=== PATIENT | female | born 1955 | race Caucasian/White ===

== ENCOUNTER 2023-11-10 06:37 | Inpatient (IN) | payer MEDICARE, MEDICAID ==
[2023-11-03 16:53] LABS: BILIRUBIN,URINE NEGATIVE (Neg); CLARITY,URINE CLOUDY (Clear); COLOR,URINE YELLOW (Yellow); GLUCOSE, URINE >=1000 mg/dl (Neg); KETONES,URINE NEGATIVE (Neg); LEUKOCYTE ESTERASE ,URINE NEGATIVE (Neg); NITRITES, URINE NEGATIVE (Neg); OCCULT BLOOD,URINE NEGATIVE (Neg); PROTEIN,URINE NEGATIVE (Neg); UROBILINOGEN,URINE 0.2 E.U/dL (0.2-1.0)
[2023-11-03 16:57] LABS: UA COLLECTION TYPE VOIDED
[2023-11-03 17:07] LABS: BASOPHILS # (AUTO) 0.1 X10'3 (0-0.2); EOSINOPHILS # (AUTO) 0.2 X10'3 (0-0.9); EOSINOPHILS % (AUTO) 3.3 % (0-6); LYMPHOCYTES # (AUTO) 2.1 X10'3 (1.1-4.8); MEAN CORPUSCULAR HEMOGLOBIN 30.4 PG (27.0-31.0); MEAN CORPUSCULAR HGB CONC 33.1 g/dL (33.0-36.5); MEAN CORPUSCULAR VOLUME 91.7 FL (78-98); MONOCYTES # (AUTO) 0.6 X10'3 (0-0.9); NEUTROPHILS # (AUTO) 4.5 X10'3 (1.8-7.7); NEUTROPHILS % (AUTO) 59.7 % (42-75); PRE OP HEMATOCRIT 48.2 % (35.0-45.0); PRE OP HEMOGLOBIN 15.9 g/dL (12.0-16.0); PRE OP PLATELET COUNT 219 X10'3 (140-440); PRE OP WHITE BLOOD COUNT 7.5 10'3 (4.8-10.8); RED BLOOD COUNT 5.25 X10'6 (4.20-5.60); RED CELL DISTRIBUTION WIDTH 14.1 % (11.5-14.5)
[2023-11-03 17:15] LABS: BACTERIA,URINE 4+ /HPF (Neg); RBC,URINE NONE SEEN /HPF (0-2); SQUAMOUS EPITHELIAL CELL,UR FEW /LPF (FEW)
[2023-11-03 17:30] LABS: ALBUMIN 3.5 G/DL (3.4-5.0); ALBUMIN/GLOBULIN RATIO 0.8 (1.1-1.5); ALKALINE PHOSPHATASE 100 IU/L (46-116); BLOOD UREA NITROGEN 18 MG/DL (7-18); BUN/CREATININE RATIO 24.7 (10.0-20.0); CALCIUM 8.9 MG/DL (8.5-10.1); CHLORIDE 100 MMOL/L (99-107); CREATININE 0.73 MG/DL (0.40-0.90); PRE OP ANION GAP 11 (8-16); PRE OP AST 64 U/L (10-37); PRE OP BILIRUB, TOTAL 0.2 MG/DL (0.0-1.0); PRE OP GLUCOSE 107 MG/DL (70-104); PRE OP SODIUM 134 MMOL/L (135-145); TOTAL CARBON DIOXIDE 22.7 MMOL/L (24-32); eGFR 79 ML/MIN
[2023-11-03 17:51] LABS: INR 1.1 INR; PRE OP ALT 109 U/L (30-65); PROTHROMBIN TIME 11.4 SECONDS (9.0-12.0)
[2023-11-03 18:18] LABS: PRE OP PARTIAL THROMB. TIME 24 SECONDS (22-32)
[2023-11-10] VITALS (35 sets, daily range): BP systolic 94–130; BP diastolic 49–75; PULSE 75–112; RESP 9–20; TEMP 97.6–98.7; O2SAT 93–100
[~2023-11-10] VITALS: Ht 160 cm; Wt 76.4 kg
[2023-11-10] MEDS: tranexamic acid inj. 1,000 MG in normal saline IV soln 100ML IV ONE (05:30)
[2023-11-10] MEDS: cefazolin 2gm/D5W 100mL 100 ML IV ONE (05:30)
[~2023-11-10 06:37] MED LIST: DICL100G59 TOP; EMPA10TA PO; GABA300T25 PO; HYLAND'S LEG CRAMPS; IMODIUM PO; LEVO175T7 PO; OXYB10TA30 PO; POTASSIUM PO; RAMI2.5C54 PO; SITA100T15 PO; SULF-14 PO; TRAM50TA2 PO
[2023-11-10] MEDS ORDERED: diphenhydrAMINE 25mg capsule PO PRN ×2 (06:50)
[2023-11-10] MEDS ORDERED: acetaminophen 325mg tablet PO PRN (06:50)
[2023-11-10] MEDS ORDERED: magnesium hydroxide 30ml (MOM) UD suspension PO PRN (06:50)
[2023-11-10] MEDS ORDERED: HYDROmorphone inj. 0.5 MG/0.5 ML DISP.SYRIN IV PRN (06:50)
[2023-11-10] MEDS ORDERED: naloxone 0.4 mg/ml inj IV PRN (06:50)
[2023-11-10] MEDS ORDERED: bisacodyl 10mg suppository rectal RC PRN (06:50)
[2023-11-10] MEDS ORDERED: ondansetron/PF 4mg/2ml inj IV PRN ×2 (06:50→10:00)
[2023-11-10] MEDS: celeCOXIB 100mg capsule PO ONE (07:50)
[2023-11-10] MEDS: oxyCODONE SR 10mg (sust. release) tab PO ONE (07:50)
[2023-11-10] MEDS: acetaminophen 325mg tablet PO ONE (07:51)
[2023-11-10] MEDS: famotidine 20mg tablet PO ONE (07:51)
[2023-11-10] MEDS: NORMAL SALINE IV ONE (07:52)
[2023-11-10] MEDS: metoclopramide 5 mg/ml inj IV ONE (07:52)
[2023-11-10] MEDS: gabapentin 300mg capsule PO ONE (07:52)
[2023-11-10] MEDS: TRANEXAMIC ACID IV ONE (07:52)
[2023-11-10] MEDS: ringers solution, lacted 1,000 ML IV SCH ×2 (07:53→10:00)
[2023-11-10] MEDS: vancomycin 1,500 MG in NS 300ml IV soln IV ONE (07:54)
[2023-11-10] MEDS ORDERED: GABAPENTIN PO SCH (08:00)
[2023-11-10] MEDS ORDERED: ketorolac trometh. 30mg/ml inj. ONE (09:32)
[2023-11-10] MEDS ORDERED: cloNIDine hcl/PF 100mcg/ml inj ONE (09:33)
[2023-11-10] MEDS ORDERED: epiNEPHrine 1 mg/ml inj ONE (09:33)
[2023-11-10] MEDS ORDERED: vancomycin 1,000mg inj ONE (09:33)
[2023-11-10] MEDS ORDERED: ROPIVAcaine 0.5% (5mg/ml) 30ml vial ONE (09:33)
[2023-11-10] MEDS ORDERED: labetalol 20mg/4ml (5mg/ml) syringe IV PRN (10:00)
[2023-11-10] MEDS ORDERED: fentaNYL/PF 50MCG/1 ML 2ML syringe IV PRN ×2 (10:00)
[2023-11-10] MEDS ORDERED: morphine 4 MG/ML inj SYRINge IV PRN (10:00)
[2023-11-10] MEDS ORDERED: hydrALAZINE 20mg/ml inj. IV PRN (10:00)
[2023-11-10] MEDS ORDERED: sevoflurane 250ml liquid IH ONE (10:00)
[2023-11-10] MEDS ORDERED: fentaNYL /PF 50mcg/ml 5ml ampule ONE (10:03)
[2023-11-10] MEDS ORDERED: propofol inj 20 ML IV ONE (10:11)
[2023-11-10] MEDS ORDERED: dexamethasone sod phosphate 4mg/ml inj. ONE (10:11)
[2023-11-10] MEDS ORDERED: ondansetron/PF 4mg/2ml inj ONE (10:11)
[2023-11-10] MEDS ORDERED: LIDOcaine 2% (20mg/ml) 5ml vial ONE (10:11)
[2023-11-10] MEDS ORDERED: acetaminophen 1,000mg/100ml IV 100 ML IV ONE (10:31)
[2023-11-10] MEDS: ROPIVAcaine 0.5% (5mg/ml) 30ml vial IJ ONE (10:58)
[2023-11-10] MEDS: cloNIDine hcl/PF 100mcg/ml inj IJ ONE (11:00)
[2023-11-10] MEDS: epiNEPHrine 1 mg/ml inj SQ ONE (11:01)
[2023-11-10] MEDS: vancomycin 1,000mg inj IVT ONE (11:01)
[2023-11-10] MEDS: morphine 2 MG/ML inj. syringe IV PRN (12:34)
[2023-11-10] MEDS: HYDROmorphone 1 mg/ml syringe IV PRN (13:02)
[2023-11-10] MEDS: ceFAZolin/D5W- 1GM premix 50 ML IV SCH (19:13)
[2023-11-10] MEDS ORDERED: sulfamethoxazole/trimethoprim SS (400mg/80mg) tab (single-strength) PO SCH (20:00)
[2023-11-10] MEDS: vancomycin/NS 1 GM ADD-VANTAGE 250 ML IV SCH (20:23)
[2023-11-10] MEDS: ascorbic acid 500mg tablet PO SCH (20:51)
[2023-11-10] MEDS: oxybutynin 5mg tablet PO SCH (20:51)
[2023-11-10] MEDS: sennosides 8.6mg tablet PO SCH (20:54)
[2023-11-10] MEDS: potassium cl 20mEq in 1/2 NS 1,000 ML IV SCH (23:00)
[2023-11-11 02:00] VITALS: BP 92/54; PULSE 72; RESP 17; TEMP 97.8; O2SAT 98
[2023-11-11] MEDS: HYDROcodone/acetaminophen 10/325mg tab PO PRN ×2 (05:19→09:52)
[2023-11-11 06:00] VITALS: BP 101/80; PULSE 70; RESP 18; TEMP 98; O2SAT 97
[2023-11-11 07:00] LABS: BASOPHILS % (AUTO) 0.2 % (0-1); EOSINOPHILS % (AUTO) 0.1 % (0-6); HEMATOCRIT 36.7 % (35.0-45.0); LYMPHOCYTES % (AUTO) 11.2 % (21-51); MEAN CORPUSCULAR HEMOGLOBIN 30.2 PG (27.0-31.0); MEAN CORPUSCULAR HGB CONC 32.7 g/dL (33.0-36.5); MEAN CORPUSCULAR VOLUME 92.3 FL (78-98); MEAN PLATELET VOLUME 10.5 FL (7.4-10.4); MONOCYTES # (AUTO) 0.7 X10'3 (0-0.9); MONOCYTES % (AUTO) 7.6 % (2-12); NEUTROPHILS # (AUTO) 7.6 X10'3 (1.8-7.7); NEUTROPHILS % (AUTO) 80.9 % (42-75); PLATELET COUNT 150 X10'3 (140-440); RED BLOOD COUNT 3.97 X10'6 (4.20-5.60); RED CELL DISTRIBUTION WIDTH 14.2 % (11.5-14.5); WHITE BLOOD COUNT 9.3 X10'3 (4.5-11.0)
[2023-11-11 07:31] LABS: ANION GAP 8 (8-16); CHLORIDE 107 MMOL/L (99-107); POTASSIUM 4.9 MMOL/L (3.5-5.1); SODIUM 139 MMOL/L (135-145); TOTAL CARBON DIOXIDE 24.1 MMOL/L (24-32)
[2023-11-11 08:00] VITALS: RESP 18; O2SAT 97
[2023-11-11] MEDS: lisinopril 2.5mg tablet PO SCH (08:00)
[2023-11-11] MEDS: levoTHYROXINE 175mcg tablet PO SCH (08:12)
[2023-11-11] MEDS: multivitamins, therapeutics tablet PO SCH (08:13)
[2023-11-11] MEDS: sulfamethoxazole/trimethoprim DS (800/160mg) tablet PO SCH (08:13)
[2023-11-11] MEDS: aspirin 325mg tablet PO SCH (08:13)
[2023-11-11 10:00] VITALS: BP 108/44; PULSE 104; RESP 15; TEMP 98.3; O2SAT 96
[2023-11-11] MEDS ORDERED: celeCOXIB 100mg capsule PO SCH (20:00)
[2023-11-11] MEDS ORDERED: gabapentin 300mg capsule PO SCH (21:00)
== END 2023-11-11 12:50 | disposition home or self-care (01) | DRG 470 ==
LOC: PAS 06:37 → ORTHO 4S 06:51
PROVIDERS: ADMIT Orthopaedic Surgery; ATTEND Orthopaedic Surgery
PROC: 0SRB0JZ Replacement of Left Hip Joint with Synthetic Substitute, Open Approach (ICD-10-PCS; principal; 2023-11-10 10:00)
DX: M16.12 Unilateral primary osteoarthritis, left hip (principal); M24.7 Protrusio acetabuli
CPT/HCPCS: 36415; 72170; 80051; 80053; 81001; 82948; 83036; 84443; 85025; 85610; 85730; 86885; 86900; 86901; 87077; 87081; 87088; 87186; 97116; 97161; 97530; A4615; A7000; C1758; C1776; G0378; J0131; J0171; J0690; J0735; J1100; J1170; J1885; J2270; J2405; J2704; J2765; J2795; J3010; J3370; J3480; J3490; J7120